=== PATIENT | female | born 1950 | race Caucasian/White ===

== ENCOUNTER 2022-11-16 09:39 | Day surgery (SDC) | payer MEDICARE ==
[~2022-11-16] VITALS: Ht 160 cm; Wt 77.9 kg
[2022-11-16] VITALS (9 sets, daily range): BP systolic 131–152; BP diastolic 70–90
[~2022-11-16 09:39] MED LIST: ATOR40TA72 PO; CALC500T11 PO; ESOM40CA54 PO; LOSA1TAB41 PO; UBID30CA11 PO; VIT1CAPS46 PO; VITA400T10 PO; cocaine 4% topical solution 4ml bottle ONE; famotidine 20mg tablet PO ONE; oxymetazoline 15 ML nasal spray NS ONE; ringers solution, lacted 1,000 ML IV SCH
[2022-11-16] MEDS ORDERED: methylPREDNISolone acetate 80mg/ml inj**IM only ONE (10:56)
[2022-11-16] MEDS ORDERED: oxymetazoline 15 ML nasal spray NS ONE (10:56)
[2022-11-16] MEDS ORDERED: mupirocin 2% ointment 22GM ONE (10:56)
[2022-11-16] MEDS ORDERED: tranexamic acid 100mg/ml inj. ONE (10:58)
[2022-11-16] MEDS ORDERED: sevoflurane 250ml liquid IH ONE (11:04)
[2022-11-16] MEDS ORDERED: midazolam 1 mg/ML 2ml injection ONE (11:13)
[2022-11-16] MEDS ORDERED: fentaNYL/PF 50MCG/1 ML 2ML syringe ONE (11:13)
[2022-11-16] MEDS ORDERED: propofol inj 20 ML IV ONE (11:16)
[2022-11-16] MEDS ORDERED: LIDOcaine 1% w/EPI 1:100,000 30ml vial (MDV) IJ ONE (11:40)
[2022-11-16] MEDS ORDERED: proCHLORperazine 10 MG/2 ml inj IV PRN (11:45)
[2022-11-16] MEDS ORDERED: morphine 2 MG/ML inj. syringe IV PRN (11:45)
[2022-11-16] MEDS ORDERED: labetalol 20mg/4ml (5mg/ml) syringe IV PRN (11:45)
[2022-11-16] MEDS ORDERED: enalaprilat dihydrate 2.5mg/2ml vial IV PRN (11:45)
[2022-11-16] MEDS ORDERED: meperidine/PF 25mg/ml syringe IV PRN ×3 (11:45)
[2022-11-16] MEDS ORDERED: morphine 4 MG/ML inj SYRINge IV PRN (11:45)
[2022-11-16] MEDS ORDERED: ondansetron/PF 4mg/2ml inj IV PRN (11:45)
[2022-11-16] MEDS ORDERED: ringers solution, lacted 1,000 ML IV SCH (11:45)
[2022-11-16] MEDS ORDERED: epiNEPHrine 1 MG/ML 1 ml ampule **BRONCH ONLY ONE (12:00)
[2022-11-16] MEDS ORDERED: LIDOcaine 1% 30ml preserv. free vial ONE (12:00)
[2022-11-16] MEDS ORDERED: ondansetron/PF 4mg/2ml inj ONE (12:11)
[2022-11-16] MEDS ORDERED: dexamethasone sod phosphate 4mg/ml inj. ONE (12:12)
--- NOTE | 2022-11-16 12:23 | NUR ---
Received from OR via , accompanied by Anesthesiologist PETROS AND OR NURSE and report given by Anesthesiolgist. PT IS DROWSY YET ABLE TO FOLLOW VERBAL COMMANDS. 20G TO RT WRIST. VSS Addendum: 11/16/22 at 1232 by Alejandra Gongroa RN Amended: Links added.
--- NOTE | 2022-11-16 13:43 | NUR ---
PATIENT A&OX4, DENIES PAIN, V/S WNL, SCD OFF, 20G D/C, I HAVE REVIEWED D/C INSTRUCTIONS WITH PATIENT INSTRUCTIONS WITH PATIENT AND THEY HAVE VERBALIZED UNDERSTANDING. PATIENT D/C HOME WITH ALL BELONGINGS AND FAMILY TRANSPORTED PATIENT HOME. Addendum: 11/16/22 at 1457 by Alejandra Gongora RN Amended: Links added.
== END 2022-11-16 13:43 | disposition home or self-care (01) ==
LOC: PAS 09:39
PROVIDERS: ATTEND Otolaryngology
DX: J34.2 Deviated nasal septum (principal); J34.3 Hypertrophy of nasal turbinates; I10 Essential (primary) hypertension; K21.9 Gastro-esophageal reflux disease without esophagitis; E66.9 Obesity, unspecified; Z68.30 Body mass index [BMI] 30.0-30.9, adult; M17.9 Osteoarthritis of knee, unspecified; M13.88 Other specified arthritis, other site; F17.210 Nicotine dependence, cigarettes, uncomplicated; Z20.822 Contact with and (suspected) exposure to COVID-19; Z90.710 Acquired absence of both cervix and uterus; Z98.890 Other specified postprocedural states; Z88.2 Allergy status to sulfonamides; Z88.5 Allergy status to narcotic agent; Z79.899 Other long term (current) drug therapy
CPT/HCPCS: 30140; 30520; 36415; 82948; 87635; 93005; A6402; C9250; C9803; J0171; J1040; J1100; J2175; J2250; J2405; J2704; J3010; J3490; J7030; J7040; J7120; U0003; U0005; Z7506; Z7508; Z7512; 88300; A4618; A6449; A7000

== ENCOUNTER 2023-11-09 07:49 | Emergency (ER) | payer MEDICARE ==
[~2023-11-09] VITALS: Ht 160 cm; Wt 161.9 kg
[~2023-11-09 07:49] MED LIST changes: -cocaine 4% topical solution 4ml bottle ONE; -famotidine 20mg tablet PO ONE; -oxymetazoline 15 ML nasal spray NS ONE; -ringers solution, lacted 1,000 ML IV SCH
[2023-11-09 09:11] LABS: BASOPHILS % (AUTO) 0.4 % (0-1); EOSINOPHILS # (AUTO) 0.1 X10'3 (0-0.9); EOSINOPHILS % (AUTO) 0.7 % (0-6); HEMATOCRIT 46.2 % (35.0-45.0); HEMOGLOBIN 15.4 g/dl (12.0-16.0); LYMPHOCYTES # (AUTO) 1.5 X10'3 (1.1-4.8); LYMPHOCYTES % (AUTO) 13.9 % (21-51); MEAN CORPUSCULAR HEMOGLOBIN 30.4 PG (27.0-31.0); MEAN CORPUSCULAR HGB CONC 33.4 g/dL (33.0-36.5); MEAN CORPUSCULAR VOLUME 91.2 FL (78-98); MONOCYTES # (AUTO) 1.1 X10'3 (0-0.9); MONOCYTES % (AUTO) 9.8 % (2-12); NEUTROPHILS # (AUTO) 8.1 X10'3 (1.8-7.7); NEUTROPHILS % (AUTO) 75.2 % (42-75); PLATELET COUNT 197 X10'3 (140-440); RED BLOOD COUNT 5.06 X10'6 (4.20-5.60); RED CELL DISTRIBUTION WIDTH 15.4 % (11.5-14.5); WHITE BLOOD COUNT 10.8 X10'3 (4.5-11.0)
[2023-11-09 09:20] LABS: ALANINE AMINOTRANSFERASE 22 U/L (12-78); ALBUMIN 2.8 G/DL (3.4-5.0); ALBUMIN/GLOBULIN RATIO 0.8 (1.1-1.5); ALKALINE PHOSPHATASE 72 IU/L (46-116); ANION GAP 9 (8-16); ASPARTATE AMINO TRANSFERASE 19 U/L (10-37); BILIRUBIN,TOTAL 0.9 MG/DL (0.1-1.0); BLOOD UREA NITROGEN 17 MG/DL (7-18); CALCIUM 8.6 MG/DL (8.5-10.1); CHLORIDE 106 MMOL/L (99-107); GLUCOSE 119 MG/DL (70-104); POTASSIUM 4.1 MMOL/L (3.5-5.1); SODIUM 139 MMOL/L (135-145); TOTAL CARBON DIOXIDE 24.4 MMOL/L (24-32); TOTAL PROTEIN 6.4 G/DL (6.4-8.2); eCRCL 42 ML/MIN; eGFR 55 ML/MIN
[2023-11-09 09:27] LABS: PRO BRAIN NATRIURETIC PEPTIDE 108 PG/ML (0-125)
[2023-11-09] MEDS ORDERED: dexamethasone sod phosphate 10mg/ml inj IV STA (11:14)
[2023-11-09] MEDS ORDERED: normal saline 500ml IV soln 500 ML IV ONE (11:15)
[2023-11-09 11:35] LABS: D-DIMER 1.36 MG/L FEU (0-0.50)
[2023-11-09] MEDS ORDERED: iohexol 350MG/ML 100ml bottle IV ONE (12:57)
[2023-11-09] MEDS ORDERED: normal saline 1000ml 1,000 ML IV ONE (13:55)
[2023-11-09 15:41] VITALS: BP 163/77; PULSE 80; RESP 16; TEMP 98; O2SAT 95
== END 2023-11-09 15:45 | disposition home or self-care (01) ==
LOC: ER 07:50
DX: R06.02 Shortness of breath (principal); Z20.822 Contact with and (suspected) exposure to COVID-19; R00.2 Palpitations; Z98.890 Other specified postprocedural states; Z88.2 Allergy status to sulfonamides; Z79.899 Other long term (current) drug therapy
CPT/HCPCS: 36415; 71045; 71275; 80053; 83880; 84484; 85025; 85379; 87502; 87503; 87811; 93005; 96361; 96374; 99285; J1100; J3490; J7030; J7040; Q9967

== ENCOUNTER 2024-06-08 17:21 | Emergency (ER) | payer MEDICARE ==
[~2024-06-08] VITALS: Ht 160 cm; Wt 73.5 kg
[~2024-06-08 17:21] MED LIST changes: -ESOM40CA54 PO; +ESOM40CA66 PO
[2024-06-08 18:30] LABS: BASOPHILS % (AUTO) 0.8 % (0-1); EOSINOPHILS % (AUTO) 0.5 % (0-6); HEMATOCRIT 44.3 % (35.0-45.0); LYMPHOCYTES # (AUTO) 1.1 X10'3 (1.1-4.8); LYMPHOCYTES % (AUTO) 32.6 % (21-51); MEAN CORPUSCULAR HEMOGLOBIN 30.7 PG (27.0-31.0); MEAN CORPUSCULAR HGB CONC 33.9 g/dL (33.0-36.5); MEAN CORPUSCULAR VOLUME 90.7 FL (78-98); MEAN PLATELET VOLUME 8.1 FL (7.4-10.4); MONOCYTES # (AUTO) 0.7 X10'3 (0-0.9); NEUTROPHILS # (AUTO) 1.5 X10'3 (1.8-7.7); NEUTROPHILS % (AUTO) 44.1 % (42-75); PLATELET COUNT 188 X10'3 (140-440); RED BLOOD COUNT 4.88 X10'6 (4.20-5.60); RED CELL DISTRIBUTION WIDTH 14.7 % (11.5-14.5); WHITE BLOOD COUNT 3.3 X10'3 (4.5-11.0)
[2024-06-08 18:51] LABS: ALBUMIN 3.4 G/DL (3.4-5.0); ANION GAP 10 (8-16); BLOOD UREA NITROGEN 20 MG/DL (7-18); BUN/CREATININE RATIO 16.9 (10.0-20.0); CALCIUM 9.3 MG/DL (8.5-10.1); CHLORIDE 105 MMOL/L (99-107); CREATININE 1.18 MG/DL (0.40-0.90); GLUCOSE 109 MG/DL (70-104); POTASSIUM 3.8 MMOL/L (3.5-5.1); PRO BRAIN NATRIURETIC PEPTIDE < 30 PG/ML (0-125); SODIUM 139 MMOL/L (135-145); TOTAL CARBON DIOXIDE 23.9 MMOL/L (24-32); eCRCL 35 ML/MIN; eGFR 45 ML/MIN
[2024-06-08 19:53] VITALS: PULSE 86
[2024-06-08 19:56] VITALS: BP 161/98; RESP 18; TEMP 97.8; O2SAT 97
== END 2024-06-08 20:07 | disposition home or self-care (01) ==
LOC: ER 17:22
DX: U07.1 COVID-19 (principal); Z88.2 Allergy status to sulfonamides; Z88.8 Allergy status to other drugs, medicaments and biological substances; Z79.899 Other long term (current) drug therapy; Z98.890 Other specified postprocedural states
CPT/HCPCS: 36415; 71045; 80048; 83605; 83880; 85025; 87040; 87811; 99284